=== PATIENT | female | born 1975 | race Hispanic/Latino ===

== ENCOUNTER 2017-11-10 07:46 | Outpatient (CLI) | payer OTHER ==
--- NOTE | 2017-11-10 09:36 | Ultrasound Report ---
The mammogram and left breast ultrasound: The patient presents with a history of a palpable finding in her left breast for approximately 2 months. A marker was placed over the area of concern and routine views as well as spot magnification compression images are obtained. On initial images the markers located in the approximate 10:00 location several centimeters posterior to the nipple. Posterior to the marker there is an asymmetric area of inhomogeneous and partially circumscribed tissue density containing several calcifications. In the location of the marker however there is no significant finding. The remainder the breast pattern is symmetric and unremarkable and that of intermediate fibroglandular tissue density. Compared to her prior exam in August 2015 the asymmetric tissue density on the left is new but the remainder of the breast pattern is essentially unchanged. Our chemistry quality control technician indicates that there is no abnormality in the palpable location at 10:00 nor elsewhere in the breast. CAD used. Impression: Suspicious left breast asymmetry. Recommendation: Consider stereotactic biopsy of left breast asymmetry. Our chemistry quality control technician has indicated the findings and recommendations to the patient. BI-RADS CATEGORY: 4 = Suspicious ACR BI-RADS MAMMOGRAPHIC CODES: 0 = Needs additional imaging evaluation; 1 = Negative; 2 = Benign; 3 = Probably benign; 4 = Suspicious; 5 = Malignant; 6 = Known biopsy-proven malignancy COMMENT: 1. Dense breast tissue, i.e., adenosis, fibrocystic changes, etc., may obscure an underlying neoplasm. 2. Approximately 10% of cancers are not detected with mammography. 3. A negative mammography report should not delay biopsy if a clinically suspicious mass is present.
== END 2017-11-10 07:47 | disposition home or self-care (01) ==
LOC: MAMMO 07:46
PROVIDERS: ATTEND Obstetrics & Gynecology Gynecology
DX: N63.20 Unspecified lump in the left breast, unspecified quadrant (principal); N64.89 Other specified disorders of breast
CPT/HCPCS: 77066

== ENCOUNTER 2017-11-25 13:26 | Outpatient (CLI) | payer OTHER ==
--- NOTE | 2017-11-25 15:05 | Mammography Report ---
STEREOTACTIC VACUUM ASSISTED BIOPSY WITH CLIP PLACEMENT LEFT BREAST: 11/25/17 13:26:00 CLINICAL: Left breast mass not seen by ultrasound. COMPARISON:11/10/17 mammogram and left breast ultrasound. FINDINGS: Consent for the procedure was obtained. The previously described mass was targeted with stereotactic guidance. The skin was prepped with Betadine and anesthetized with 1% lidocaine. 2% lidocaine with epinephrine was injected for deeper anesthesia. 8 gauge Mammotome biopsy was performed from a medial approach through a small dermatotomy. Prefire and post-fire images demonstrated satisfactory positioning of the probe. Samples were obtained around the clock face. A clip was placed at the biopsy site and the deployment was confirmed with a radiograph. The probe was removed and hemostasis was achieved with mild pressure. A sterile dressing was applied. The patient tolerated the procedure well and there were no apparent complications. Two view mammogram demonstrated concordant position of the biopsy clip and a specimen radiograph confirmed removal of calcifications and portions of a mass. IMPRESSION: Uncomplicated stereotactic biopsy with clip placement left breast.
--- NOTE | 2017-11-25 15:06 | Mammography Report ---
LEFT DIGITAL DIAGNOSTIC MAMMOGRAM: 11/25/17 13:26:00 CLINICAL: For clip placement immediately status post stereotactic biopsy. COMPARISON:11/10/15 FINDINGS: A biopsy clip is now identified within the previously described upper inner lobular shaped mass. At least one calcification has been removed. IMPRESSION: Concordant clip placement status post stereotactic biopsy. BI-RADS CATEGORY: 4--Suspicious Pathology pending.
== END 2017-11-25 13:27 | disposition home or self-care (01) ==
LOC: SPVWC 13:26
PROVIDERS: ATTEND Obstetrics & Gynecology Gynecology
DX: R92.8 Other abnormal and inconclusive findings on diagnostic imaging of breast (principal); N63.0 Unspecified lump in unspecified breast
CPT/HCPCS: 19081; 77065; 88305; 88342; 88361; A4648

== ENCOUNTER 2017-12-24 12:40 | Outpatient (CLI) | payer OTHER ==
--- NOTE | 2017-12-27 14:45 | Magnetic Resonance Report ---
BILATERAL BREAST MRI WITHOUT AND WITH CONTRAST: 12/24/17 12:40:00 CLINICAL: Newly diagnosed left breast cancer. Status post left stereotactic breast biopsy 11/25/17 with pathologic diagnosis of invasive carcinoma. COMPARISON:11/10/17 bilateral mammogram and left breast ultrasound. TECHNIQUE: Axial 1.0-mm T1 without, axial high resolution 2.0-mm T2 and axial 1.0-mm dynamic Vibrant high-resolution postcontrast T1 fat saturation sequences on a 1.5 Mi magnet. The examination was performed with an 8 channel dedicated Sentinelle breast coil. Post processing with CAD and subtraction was performed on an [employer] workstation. 20 cc of Multihance was injected for the contrast portion of the exam. Consent was obtained prior to the administration of the contrast. FINDINGS: Right: Mild background parenchymal enhancement. The known cancer is an irregular shaped enhancing mass at 10 o'clock 10.2 cm from the nipple measuring 1.7 x 1.7 x 1.6 cm. It contains a biopsy clip and correlates with a 2 cm mass on the recent mammogram. It demonstrates heterogeneous enhancement with mixed kinetics, 289% peak enhancement and 6% type III washout. Four additional suspicious masses are identified in the upper inner quadrant. Lesion 2 is located approximately 1.5 cm inferior to the known cancer and 10.0 cm from the nipple. It measures 7.6 x 5.2 x 3.4 mm. It demonstrates heterogeneous enhancement with mixed kinetics, 187% peak enhancement and 25% type III washout. Lesion 3 is located 2.2 cm anterior and less than 1 cm inferior inferior to the known cancer and 7.3 cm from the nipple. It measures 4.9 x 4.3 x 2.6 mm and demonstrates heterogeneous enhancement mixed kinetics, 148% peak enhancement in 53% type III washout. Lesion 4 and 5 are located anterior to the known cancer and measure 4.3 mm and 4.8 mm each with similar enhancement. Both are located approximately 7.7 cm from the nipple. No suspicious left axillary or left internal mammary lymph nodes. Several left axillary lymph nodes have benign morphology with central fat. The largest measures 2.9 x 0.8 cm. Left: Mild background parenchymal enhancement. No mass or suspicious enhancement of the right breast. No suspicious right axillary or right internal mammary lymph nodes. IMPRESSION: 1. Multifocal left breast cancer with a dominant 1.7 cm biopsy-proven cancer and four additional smaller masses in the same quadrant. The masses span a distance of approximately 4.5 cm. 2. Negative right breast. 3. No suspicious lymph nodes. RIGHT BI-RADS 1 -- Negative LEFT BI-RADS 6 -- Known Cancer
== END 2017-12-24 12:41 | disposition home or self-care (01) ==
LOC: SPVIMAG 12:40
PROVIDERS: ATTEND Surgery
DX: C50.212 Malignant neoplasm of upper-inner quadrant of left female breast (principal)
CPT/HCPCS: A9577; C8908; 77059

== ENCOUNTER 2018-01-06 10:52 | Outpatient (CLI) | payer OTHER ==
--- NOTE | 2018-01-07 11:16 | PET Report ---
PET/CT:01/06/18 10:52:00 CLINICAL: Newly diagnosed left breast cancer. RADIOPHARMACEUTICAL: 15.35mCi F18-FDG. COMPARISON: 12/24/17 MRI Breast TECHNIQUE- Following intravenous injection of F-18 FDG and an approximately 60 minute uptake period, CT and PET images from the mid skull to the upper thighs were acquired with the patient in the fasted state. No contrast was administered. The CT protocol used for this PET CT study is designed for attenuation correction and anatomic localization of PET abnormalities. This multiple launch rocket system crewmember CT is not desired to produce and cannot replace, osemc-fr-ayk-art diagnostic CT scans with specific imaging protocols for different body parts and indications. Plasma glucose at the time of this test: 85g/dl. The standardized uptake values (SUV) are normalized to patient body weight and indicate the highest activity concentration (SUV max) in a given disease site. FINDINGS: Brain--Physiologic FDG uptake in the visualized regions of the brain. Neck--Physiologic FDG uptake . Chest--Physiologic FDG uptake in mediastinal blood pool and myocardium. A 1.7 cm FDG avid left upper inner breast mass with the biopsy clip and SUV 4.7. Lungs--No abnormal uptake. No pulmonary nodule or mass. Pleura/pericardium--No abnormal uptake. Thoracic nodes--No abnormal uptake. Small bilateral axillary lymph nodes with no FDG uptake. The largest on the left has central fat and measures 1.8 cm. Hepatobiliary--No abnormal uptake. Liver background SUV mean, as a reference for comparing FDG studies, is 3.7 . No liver mass. Spleen--No abnormal uptake. Pancreas--No abnormal uptake. Adrenal Glands--No abnormal uptake. Kidneys/Ureters/Bladder--No abnormal uptake. Abdominopelvic Nodes--No abnormal uptake. Bowel/Peritoneum/Mesentery--No abnormal uptake. Pelvic organs--No abnormal uptake. Bones/Soft Tissues--No abnormal uptake. No suspicious bone lesion. IMPRESSION-A single 1.7 cm FDG avid left breast mass. No evidence of metastasis.
== END 2018-01-06 10:53 | disposition home or self-care (01) ==
LOC: PET 10:52
PROVIDERS: ATTEND Internal Medicine Hematology & Oncology
DX: C50.212 Malignant neoplasm of upper-inner quadrant of left female breast (principal)
CPT/HCPCS: 78815; A9552

== ENCOUNTER 2018-01-10 10:27 | Outpatient (CLI) | payer OTHER ==
--- NOTE | 2018-01-10 11:25 | Ultrasound Report ---
LEFT BREAST ULTRASOUND: 01/10/18 10:27:00 CLINICAL: Known left breast cancer in three additional suspicious lesions by MRI. MRI biopsy on the same day was unsuccessful because of limitations in positioning. Two additional suspicious lesions were identified on today's MRI but only one was accessible for MRI biopsy. The biopsy could not be performed because the lesion disappeared on the last scan after repositioning in attendance to include a second lesion. This examination is performed in hopes of identifying additional lesions for biopsy. COMPARISON: MRI breast 12/24/17 FINDINGS: Ultrasound(including all four quadrants and the retroareolar area) was performed and demonstrated an irregular solid hypoechoic mass at 10 o'clock 8 cm from the nipple. It corresponds to the known cancer and measures 1.7 x 1.2 x 1.1 cm. No other mass identified. IMPRESSION: Known left breast cancer and no additional suspicious lesion identified by ultrasound. Recommend a second attempt at MRI biopsy. BI-RADS 6--Known Cancer
== END 2018-01-10 10:28 | disposition home or self-care (01) ==
LOC: SPVIMAG 10:27
PROVIDERS: ATTEND Surgery
DX: C50.912 Malignant neoplasm of unspecified site of left female breast (principal)

== ENCOUNTER 2018-01-24 08:07 | Outpatient (CLI) | payer OTHER ==
--- NOTE | 2018-01-24 10:59 | Mammography Report ---
LEFT DIGITAL DIAGNOSTIC MAMMOGRAM: 01/24/18 08:07:00 CLINICAL: For clip placement immediately status post MRI guided needle breast biopsy at 2 sites. Known cancer in the same breast. COMPARISON:11/05/17 FINDINGS: 2 biopsy clips correlate with MRI guided biopsy of 2 sites. Sample 1 is approximately 3 cm anterior to the known cancer and sample 2 is approximately 3 cm from the known cancer and 4 cm from sample 1. IMPRESSION: Concordant clip placement status post MRI guided needle breast biopsy at 2 sites . BI-RADS CATEGORY: 6--Known Cancer Pathology pending.
--- NOTE | 2018-01-24 11:48 | Magnetic Resonance Report ---
MRI GUIDED VACUUM ASSISTED CORE BIOPSY TWO SITES LEFT BREAST: 01/24/18 CLINICAL: Known left breast cancer with additional suspicious lesions by recent MRI. MRI biopsy was initiated on 01/06/18 but the procedure was not performed for technical reasons. COMPARISON: 12/24/17 FINDINGS: Consent for the procedure was obtained. A Vibrant dynamic postcontrast series was performed on a 1.5 Mi magnet using an 8 channel Sentinelle dedicated breast coil. Normal 19 cc of Multihance was injected intravenously without incident via a left antecubital vein 22-gauge INT. Consent was obtained prior to administration of contrast. Two lesions were localized and targeted using [email or web address] Sentinelle biopsy software. Lesion 2 is far posterior and most of the lesion is outside the grid. The skin was anesthetized with 1% lidocaine and small dermatotomies were performed. 2% lidocaine was administered for deeper anesthesia. 9-G biopsy was performed with an [employer] vacuum assisted device. Imaging demonstrated satisfactory positioning of the probe at the two sites and satisfactory samples were obtained. Clips were placed at both sites after confirmation of adequate sampling. The probes were removed and hemostasis was achieved with pressure to the sites. Sterile dressings were applied. The patient tolerated the procedure well and there were no apparent complications. A two view mammogram demonstrated concordant placement of both clips. The patient left the department in good condition with instructions for wound care and follow-up. IMPRESSION: Uncomplicated MRI biopsy with clip placement two sites left breast.
== END 2018-01-24 08:08 | disposition home or self-care (01) ==
LOC: SPVIMAG 08:07
PROVIDERS: ATTEND Surgery
DX: C50.912 Malignant neoplasm of unspecified site of left female breast (principal); C50.212 Malignant neoplasm of upper-inner quadrant of left female breast; Z17.1 Estrogen receptor negative status [ER-]
CPT/HCPCS: 19085; 19086; 77065; 88305; 88341; 88342; 88361; A9577

== ENCOUNTER 2018-02-14 06:56 | Observation (INO) | payer OTHER ==
[2018-02-14] MEDS ORDERED: SUBLIMAZE IV NR (08:11)
--- NOTE | 2018-02-14 08:11 | Anesthesia Day of Surgery ---
Anesthesia Day of Surgery - Day of Surgery Patient Examined: Yes Patient H&P Reviewed: Yes Patient is NPO: Yes
--- NOTE | 2018-02-14 08:11 | Anesthesia Consultation ---
Anesthesia Consult and Med Hx Date of service: 02/14/18 - Airway Anesthetic Teeth Evaluation: Good ROM Head & Neck: Adequate Mental/Hyoid Distance: Adequate Mallampati Class: Class I Intubation Access Assessment: Good - Pulmonary Exam CTA: Yes - Cardiac Exam Cardiac Exam: RRR - Pre-Operative Health Status ASA Pre-Surgery Classification: ASA3 Proposed Anesthetic Plan: General Nerve Block: pecs - Central Nervous System Hx Psychiatric Problems: No - Hematic Hx Anemia: Yes - Other Systems Hx Alcohol Use: No Hx Substance Use: No Hx Cancer: Yes (breast cancer) Hx Obesity: Yes - Additional Comments Anesthesia Medical History Comments: Informed consentn obtained
[2018-02-14] MEDS ORDERED: DILAUDID IV PRN (08:12)
[2018-02-14] MEDS ORDERED: MARCAINE 0.25% INFILTRATI ONE ×2 (08:20→10:45)
[2018-02-14] MEDS ORDERED: GARAMYCIN ONE (08:20)
[2018-02-14] MEDS ORDERED: XYLOCAINE 1% 20 mL ONE (08:20)
[2018-02-14] MEDS ORDERED: ANCEF ONE (08:20)
[2018-02-14] MEDS ORDERED: MARCAINE 0.5% 0 ML INFILTRATI ONE (08:20)
[2018-02-14] MEDS ORDERED: NACL 0.9% 100 ML ONE (08:21)
[2018-02-14] MEDS ORDERED: BACITRACIN ONE (08:21)
[2018-02-14] MEDS ORDERED: CLONIDINE 1,000 MCG/10 ML VIAL EP ONE (08:23)
[2018-02-14] MEDS ORDERED: MARCAINE 0.5% 30 ML INFILTRATI ONE (08:30)
[2018-02-14] MEDS ORDERED: XYLOCAINE 1% 20 mL INFILTRATI NR (08:30)
[2018-02-14] MEDS ORDERED: NEURONTIN PO NR (09:00)
[2018-02-14] MEDS ORDERED: NEO SYNEPHRINE/NS Syringe(OR USE) IV ONE (09:00)
[2018-02-14] MEDS ORDERED: MARCAINE 0.5% INFILTRATI NR (09:00)
[2018-02-14] MEDS ORDERED: PEPCID IV NR (09:00)
[2018-02-14] MEDS ORDERED: VERSED IV NR (09:00)
[2018-02-14] MEDS ORDERED: DECADRON IV NR (09:00)
[2018-02-14] MEDS ORDERED: NACL 0.9% 1000 ML 1,000 ML IV SCH (09:00)
[2018-02-14] MEDS ORDERED: XYLOCAINE MPF 2% ONE (09:07)
[2018-02-14] MEDS ORDERED: SUBLIMAZE ONE (09:07)
[2018-02-14] MEDS ORDERED: DIPRIVAN 10 MG/ML IV ONE (09:08)
--- NOTE | 2018-02-14 10:03 | Short Stay Summary ---
Short Stay Documentation Date of service: 02/14/18 - History Principal diagnosis: Left breast cancer of the upper inner quadrant H&P: obtained from office - Allergies and Medications Current Medications: Allergies No Known Allergies Allergy (Verified 02/11/18 13:10) Home Medications Medication Instructions Recorded Confirmed Last Taken Type No Known Home Medications [No 02/11/18 02/11/18 Unknown History Reported Home Medications] Active Medications Bupivacaine HCl (Marcaine 0.5%) 30 ml INFILTRATI PREOP NR Stop: 02/14/18 12:00 Celecoxib (Celebrex) 200 mg PO PREOP NR Stop: 02/14/18 12:00 Clonidine HCl (Clonidine 1,000 Mcg/10 Ml Vial) 200 mcg EP DIRECT ONE Stop: 02/14/18 08:24 Dexamethasone (Decadron) 8 mg IV PREOP NR Stop: 02/14/18 12:00 Famotidine (Pepcid) 20 mg IV PREOP NR Stop: 02/14/18 12:00 Fentanyl (Sublimaze) 100 mcg IV ONCE NR Stop: 02/14/18 12:00 Gabapentin (Neurontin) 600 mg PO PREOP NR Stop: 02/14/18 12:00 Hydromorphone HCl (Dilaudid) 0.5 mg IV Q10MIN PRN PRN Reason: Pain , Severe (7-10) Stop: 02/14/18 12:00 Sodium Chloride (Nacl 0.9% 1000 Ml) 1,000 mls @ 100 mls/hr IV DIRECT SHALA Stop: 02/14/18 18:00 Lidocaine (Xylocaine 1% 20 Ml) 10 ml INFILTRATI PREOP NR Stop: 02/14/18 12:30 Midazolam HCl (Versed) 2 mg IV PREOP NR Stop: 02/14/18 23:59 - Brief post op/procedure progress note Date of procedure: 02/14/18 Pre-op diagnosis: Multicentric left breast cancer of the upper inner quadrant Post-op diagnosis: same Procedure: Left total mastectomy with SLNB followed by left ALND Anesthesia: GETA Findings: Left total mastectomy; x2 SLNs and 1 of 2 positive for malignancy and then proceeded with left ALND Surgeon: GERALD LESTER Estimated blood loss: minimal Pathology: list (left mastectomy, left L SLNS x2, left ALND) Specimen disposition: to lab Condition: stable - Disposition Condition at discharge: Good Disposition: DC/TX-02 SHRT-TRM GEN HOSP IP Short Stay Discharge Plan Activity: other (no heavy lifting) Diet: regular Wound: other (per plastic surgery) Follow up with: JAYLEN TERRY MD [Primary Care Provider] - 7 Days GERALD LESTER MD [Staff Physician] - 7 Days
--- NOTE | 2018-02-14 10:07 | Operative Report ---
Operative Report Operative Report: Date of Service: February 14, 2018 Preoperative diagnosis: Multicentric left breast cancer of the upper inner quadrant Postoperative diagnosis: Same Procedure: Left total mastectomy with sentinel lymph node biopsy followed by ALND Surgeon: Charissa Shay M.D. Asst.: Brianna Kim MD Anesthesia: Gen. Findings: Left breast clips x3 present within left total mastectomy. 2 sentinel lymph nodes identified and 1 node positive for malignancy on frozen section of pathology and proceeded with left axillary lymph node dissection Complications: None Drains: Axilla and breast Estimated blood loss: Minimal Disposition: PACU in good condition Indications for operative procedure: This is a 42-year-old lady with stage I multicentric left breast cancer of the upper inner quadrant. Recommendations were to proceed with a left total mastectomy given multicentric breast cancer and SLN staging. Patient wished to procced with immediate tissue music educator placement by plastic surgery as well. Procedure in detail: Anesthesia placed left pectoral muscle block prior to going to the operating room. The patient was taken to the operating room and was placed supine. Gen. anesthesia was administered. The left nipple was injected with radioisotope and 1 cc of methylene blue. The known left breast cancer at the 10:00 position 7-9 cm from the nipple. Left breast was prepped and draped in the normal sterile operative fashion. Timeout was performed. Typical mastectomy incision markings were made. Attention was taken towards the left breast. A gamma probe was inserted into the axilla to identify the sentinel lymph node location with no uptake noted. A skin incision was made with a 10 blade knife and dissection taken down to the subcutaneous tissues. First began raising of the superior flap to the level of the clavicle superiorly and posteriorly to the pectoralis muscle. Followed by raising of the medial flap to the level of the sternum and posteriorly to the pectoralis muscle. Followed by raising of the lateral flap to the level of the latissimus dorsi muscle and taken down posteriorly. The gamma probe was inserted into the axilla and 2 sentinel lymph nodes were identified with the gamma probe and all remaining counts were less than 10% of the highest SLN. Lymph node was sent to pathology with findings 1 of 2 sentinel lymph nodes positive for malignancy noted on frozen section. Then proceeded with raising of the inferior flap to the level of the inframammary fold taken posterior to the pectoralis muscle. The mastectomy/breast was removed from the pectoralis muscle without incident. The specimen was appropriately marked and sent to radiology with findings of 3 breast clips present and sent to pathology. Attention was then taken towards the left axilla. First began opening of the axillary fascia further. The lattismus dorsi muscle was identified and followed superiorly. Then proceeded with identification of the axillary vein followed by identification of the thoracodorsal bundle and long thoracic nerve. Axillary lymph nodes were then removed from the above boundaries with the aid of the bovie cautery and sweeping-like motion and then sent to pathology. Axillary lymph nodes from level I and II were removed. Axillary lymph nodes were also noted lateral to the thoradorsal bundle that were removed. Both nerves were identified and unharmed. Hemostasis was noted. Dr. Frank then proceeded with left tissue music educator placement.
[2018-02-14] MEDS ORDERED: METHYLENE BLUE ONE (10:14)
[2018-02-14] MEDS ORDERED: NACL ONE (10:15)
[2018-02-14] MEDS ORDERED: METHYLENE BLUE IRRIGATION ONE ×3 (10:15→13:40)
[2018-02-14] MEDS ORDERED: XYLOCAINE 1% 20 mL INFILTRATI ONE (10:45)
[2018-02-14] MEDS ORDERED: DECADRON ONE (11:59)
--- NOTE | 2018-02-14 12:21 | Mammography Report ---
Operative specimen: A single surgical specimen is submitted. There are 2 adjacent biopsy clips near one surface and a third biopsy clip near another surface. Centrally there is a circumscribed nodule.
[2018-02-14] MEDS ORDERED: GARAMYCIN IV ONE (13:40)
[2018-02-14] MEDS ORDERED: ANCEF IV ONE (13:40)
[2018-02-14] MEDS ORDERED: BACITRACIN IR ONE (13:40)
[2018-02-14] MEDS ORDERED: PERCOCET 5/325 PO PRN (14:13)
[2018-02-14] MEDS ORDERED: SODIUM CHLORIDE FLUSH SYRINGE 10 ML IV PRN (14:13)
[2018-02-14] MEDS ORDERED: BENADRYL PO PRN (14:13)
[2018-02-14] MEDS ORDERED: REGLAN PO PRN (14:13)
[2018-02-14] MEDS ORDERED: TYLENOL PO PRN (14:13)
[2018-02-14] MEDS ORDERED: ZOFRAN IV PRN (14:13)
[2018-02-14] MEDS ORDERED: ZOFRAN ONE (14:25)
[2018-02-14] MEDS ORDERED: ZEMURON IV ONE (14:42)
[2018-02-14] MEDS: DILAUDID IV PRN ×3 (14:52→15:21)
[2018-02-14] MEDS ORDERED: DILAUDID ONE ×2 (14:53→15:24)
--- NOTE | 2018-02-14 14:54 | Post Operative Note ---
Pre-op diagnosis: left breast cancer Post-op diagnosis: same Findings: left mastectomy defect Procedure: left breast reconstruction with tissue plant operations coordinator and mesh Anesthesia: GETA Surgeon: ABDIEL MANZANO Estimated blood loss: minimal Pathology: none Condition: stable Disposition: PACU
--- NOTE | 2018-02-14 15:40 | Post Anesthesia Evaluation ---
- Post Anesthesia Evaluation Patient Participated: Yes Airway Patent: Yes Stable Respiratory Function: Yes Nausea/Vomiting: No Temp > 96.8F: Yes Pain Manageable: Yes Adequeate Hydration: Yes Anesthesia Complications: No
[2018-02-14] MEDS: LACTATED RINGERS 1,000 ML IV SCH (17:30)
[2018-02-14] MEDS: MORPHINE IV PRN (19:42)
[2018-02-14] MEDS: COLACE PO SCH (22:00)
[2018-02-15] MEDS: LACTATED RINGERS 1,000 ML IV SCH (00:33)
[2018-02-15] MEDS: MORPHINE IV PRN (05:21)
[2018-02-15 08:43] VITALS: BP 130/87
[2018-02-15] MEDS: COLACE PO SCH (10:07)
--- NOTE | 2018-02-16 00:01 | Operative Report ---
PREOPERATIVE DIAGNOSIS: Left breast cancer. POSTOPERATIVE DIAGNOSIS: Left breast cancer. PROCEDURES: 1. Left immediate breast reconstruction with tissue consumer studies professor. CPT CODE 08529-P. 2. Left breast reconstruction utilizing implantation of biological mesh, FlexHD. CPT CODE 06867-F. 3. Application of negative pressure wound VAC device for wound healing, DANI. CPT CODE 22017-K. SURGEON: Tolu Cuevas M.D. BED RUBBER: None. ANESTHESIA: General. OPERATIVE INDICATIONS: This is a 42-year-old female who has a newly diagnosed left breast cancer. She is going to be undergoing left mastectomy. Dr. Shay and she saw me in the office for reconstructive options. After discussion of the different options, we elected to proceed with left breast tissue consumer studies professor reconstruction. Risks and benefits of surgery were discussed with the patient. She agreed. OPERATIVE DETAILS: After informed consent was obtained, the patient was brought to the operating room and placed supine on the operating table. Preoperative antibiotics and general anesthesia were administered. The patient was prepped and draped in usual sterile fashion. A timeout was called verifying the name of the patient, operation being performed, side and site of the operation. Dr. Shay began her portion of the operation performed in the mastectomy and lymph node dissection, which will be dictated separately. I came into the room at the completion of her portion of the procedure, assessed the defect, which was a left mastectomy defect and lymph node dissection, and began with reconstruction. Subpectoral pocket was created and a tissue consumer studies professor was prepared for implantation. We used a [place] [employer] high profile 500 mL tissue consumer studies professor with serial #[id number]. We removed all the air from the consumer studies professor, placed in the subpectoral pocket, secured it with suture tabs at the chest wall. I then took a piece of FlexHD medium perforated 11 x 20 cm with serial #[id number] and secured that to the inframammary and lateral breast borders with 2-0 Vicryl sutures. We then completely cover the implant by sewing the pectoralis major muscle to the FlexHD using 2-0 Vicryl running suture. Everything was irrigated with antibiotic irrigation. Hemostasis was achieved. We placed a 15-Korean Chester drain in the axilla, a 19-Korean Chester drain in the prepectoral space, and began with closure. 2-0 Vicryl interrupteds were used for the skin and then a running 2-0 Monocryl barbed suture in the deep dermal fashion. We then identified the port and inserted a butterfly needle and placed 250 mL of saline with methylene blue into the consumer studies professor. This did not appear to compromise the skin flaps at all. A DANI negative pressure wound VAC device was then applied to the incision for postoperative wound healing. The patient tolerated procedure well, was awakened from general anesthesia, transferred to PACU in stable condition. FINDINGS: Left mastectomy defect. COMPLICATIONS: None. ESTIMATED BLOOD LOSS: Less than 50 mL. JOB# [id number] Ray/BITA
== END 2018-02-15 11:20 | disposition home or self-care (01) ==
LOC: OR 06:56 → OB 14:13
PROVIDERS: ADMIT Surgery; ATTEND Surgery
DX: C50.212 Malignant neoplasm of upper-inner quadrant of left female breast (principal); E66.9 Obesity, unspecified; Z68.30 Body mass index [BMI] 30.0-30.9, adult
CPT/HCPCS: 15777; 19303; 19357; 38745; 64450; 76098; 78800; 81025; 88307; 88331; 88333; 96374; 96375; 96376; 97607; A9541; C1789; G0378; J0690; J0735; J1100; J1170; J1580; J2250; J2270; J2370; J2405; J2704; J3010; J7030; J7120; Q4128; Q9968

== ENCOUNTER 2018-03-15 08:15 | Day surgery (SDC) | payer OTHER ==
[~2018-03-15 08:15] MED LIST: HEPARIN IR ONE
[2018-03-15] MEDS ORDERED: PERCOCET 5/325 PO PRN (09:49)
[2018-03-15] MEDS ORDERED: TORADOL IV PRN (09:49)
[2018-03-15] MEDS ORDERED: DILAUDID IV PRN (09:49)
[2018-03-15] MEDS ORDERED: ZOFRAN IV PRN (09:49)
--- NOTE | 2018-03-15 09:50 | Anesthesia Day of Surgery ---
Anesthesia Day of Surgery - Day of Surgery Patient Examined: Yes Patient H&P Reviewed: Yes Patient is NPO: Yes
--- NOTE | 2018-03-15 09:50 | Anesthesia Consultation ---
Anesthesia Consult and Med Hx Date of service: 03/15/18 - Airway Anesthetic Teeth Evaluation: Good ROM Head & Neck: Adequate Mental/Hyoid Distance: Adequate Mallampati Class: Class II Intubation Access Assessment: Probably Good - Pulmonary Exam CTA: Yes - Cardiac Exam Cardiac Exam: RRR - Pre-Operative Health Status ASA Pre-Surgery Classification: ASA2 Proposed Anesthetic Plan: General - Pulmonary Hx Asthma: No COPD: No Hx Pneumonia: No - Cardiovascular System Hx Hypertension: No - Central Nervous System Hx Psychiatric Problems: No - Endocrine Hx End Stage Renal Disease: No - Hematic Hx Anemia: Yes - Other Systems Hx Alcohol Use: No Hx Substance Use: No Hx Cancer: Yes Hx Obesity: Yes
[2018-03-15] MEDS ORDERED: MARCAINE 0.25% INFILTRATI ONE ×3 (09:53→10:28)
[2018-03-15] MEDS ORDERED: XYLOCAINE 1% 20 mL ONE (09:53)
[2018-03-15] MEDS ORDERED: HEPARIN 10,000 UNITS/10 ML ONE (09:54)
[2018-03-15] MEDS ORDERED: NACL 0.9% 100 ML ONE (09:54)
[2018-03-15] MEDS ORDERED: ANCEF/STERILE WATER 2 GM/20 ML IV NR (10:00)
[2018-03-15] MEDS ORDERED: LACTATED RINGERS 1,000 ML IV SCH (10:00)
[2018-03-15] MEDS ORDERED: DIPRIVAN 10 MG/ML IV ONE (10:01)
[2018-03-15] MEDS ORDERED: XYLOCAINE MPF 2% ONE (10:01)
[2018-03-15] MEDS ORDERED: DECADRON ONE (10:20)
[2018-03-15] MEDS ORDERED: ZOFRAN ONE (10:20)
[2018-03-15] MEDS ORDERED: DILAUDID ONE (10:24)
[2018-03-15] MEDS ORDERED: XYLOCAINE 1% 20 mL INFILTRATI ONE ×2 (10:28)
[2018-03-15] MEDS ORDERED: NACL 0.9% IV ONE (10:30)
[2018-03-15] MEDS ORDERED: HEPARIN 10,000 UNITS/10 ML IR ONE (10:30)
[2018-03-15] MEDS ORDERED: HEPARIN IR ONE (11:00)
--- NOTE | 2018-03-15 11:27 | Short Stay Summary ---
Short Stay Documentation Date of service: 03/15/18 Narrative H&P: 42 yo F with left sided breast cancer presents for placement of port a cath. No complaints. - History Principal diagnosis: Left breast cancer H&P: obtained from office - Allergies and Medications Current Medications: Allergies No Known Allergies Allergy (Verified 03/10/18 13:22) Home Medications Medication Instructions Recorded Confirmed Last Taken Type No Known Home Medications [No 02/11/18 02/11/18 Unknown History Reported Home Medications] Active Medications Cefazolin Sodium (Ancef/Sterile Water 2 Gm/20 Ml) 2 gm IV PREOP NR Stop: 03/15/18 12:00 Hydromorphone HCl (Dilaudid) 0.25 mg IV Q10MIN PRN PRN Reason: Pain, Moderate (4-6) Stop: 03/15/18 15:00 Lactated Ringer's (Lactated Ringers) 1,000 mls @ 100 mls/hr IV DIRECT SHALA Ketorolac Tromethamine (Toradol) 30 mg IV ONCE PRN PRN Reason: Pain, Moderate (4-6) Stop: 03/15/18 15:00 Ondansetron HCl (Zofran) 4 mg IV ONCE PRN PRN Reason: Nausea And Vomiting Stop: 03/15/18 15:00 Oxycodone/Acetaminophen (Percocet 5/325) 1 tab PO ONCE PRN PRN Reason: Pain, Moderate (4-6) Stop: 03/15/18 15:00 - Brief post op/procedure progress note Date of procedure: 03/15/18 Pre-op diagnosis: left breast cancer Post-op diagnosis: same Procedure: placement of R IJ port a cath with ultrasound guidance Anesthesia: GETA, local Findings: Good blood return from port and it flushes easily. Good placement of port on post op CXR without PTX. Surgeon: KARYN MOELLER Estimated blood loss: minimal Pathology: none Condition: stable - Hospital course Hospital course: Pt was recovered in the PACU and discharged to home when criteria was met. - Disposition Condition at discharge: Good Disposition: DC-01 TO HOME OR SELFCARE Short Stay Discharge Plan Activity: no restrictions Diet: regular Wound: open to air, other (May shower with soap and water, pat incisions dry, do not scrub. Do not submerge incisions in water until healed.) Additional Instructions: Call surgeon's office if you have temp>100.4, drainage or redness around incisions. A small amount of bruising around incisions is normal and you can use ice to help with pain and bruising. Follow up with your oncologist to start chemotherapy as scheduled. If you do not have a follow up with Dr. Shay in the next two weeks, please follow up with Dr. Moeller in 2 weeks. Call [phone] to make an appointment. Follow up with: JAYLEN TERRY MD [Primary Care Provider] - 7 Days
--- NOTE | 2018-03-15 11:39 | Fluoroscopy Report ---
AP CHEST: HISTORY: Czyzsa-g-Aryq insertion A right Dndvnb-l-Ocru has been inserted which terminates in the right atrium. No pneumothorax. The lungs are clear. Heart size is borderline. Left breast tissue life science taxonomist is noted. IMPRESSION: Right Xkdtpo-p-Flsv placement as described. No pneumothorax.
[2018-03-15 13:56] VITALS: BP 145/90
--- NOTE | 2018-03-15 14:47 | Operative Report ---
Operative Report Operative Report: Date of procedure: 03/15/18 Pre-op diagnosis: left breast cancer Post-op diagnosis: same Procedure: placement of R IJ port a cath with ultrasound guidance Anesthesia: GETA, local Findings: Good blood return from port and it flushes easily. Good placement of port on post op CXR without PTX. Surgeon: KARYN MOELLER Estimated blood loss: minimal Pathology: none Condition: stable HPI and indication: 42 yo F with left breast ca presents for placement of port a cath. She is a candidate for chemotherapy and is starting chemo on 03/17/18. All risks, benefits, alternatives to surgery discussed with the patient and consent verified on chart. Procedure in detail: The patient was identified in the preoperative area and taken to the OR and placed on the OR table in supine position. After anesthesia was induced, both arms were tucked with appropriate padding, and the upper chest and neck were prepped and draped in the usual sterile fashion. A time out was performed. Using ultrasound guidance, the right subclavian vein was seen and compressible. Local anesthetic was infiltrated into the skin at the intended puncture site. The patient was placed in trendelenberg position and two attempts were made to access the subclavian vein, however it was too deep and could not be accessed safely. Therefore, the right internal jugular vein was identified on ultrasound and accessed on first attempt. There was return of dark red, nonpulsatile blood. A guidewire was passed without difficulty and positioning verified using fluoroscopy. The needle was withdrawn. Local anesthetic was infiltrated into the skin and subcutaneous tissue at the port insertion site. A 4 cm horizontal incision was made in the skin below the clavicle using a 15 blade. Dissection was carried down through the skin and subcutaneous tissue using electrocautery with hemostasis achieved along the way. A pocket was then created for the port using bovie electrocautery and blunt dissection and hemostasis carefully achieved. All parts of the port were flushed with heparinized saline. The catheter was then tunnelled from the pocket to the wire using the tunnel drier operator. A breakaway catheter/dilator sheath was then introduced over the wire using seldinger technique under fluoroscopic guidance. The wire and dilator was removed and catheter inserted. The breakaway sheath was removed and the catheter sat flush under the skin. The catheter was pulled back slowly under fluoro until the tip was seen in the right atrium. The catheter was then cut and the port attached in the standard fashion. The pocket was irrigated and hemostasis once again ensured. The port was sutured to the prepectoral fascia using 2-0 vicryl in two locations. The port was tested with heparized saline and there was good blood return and the port flushed easily. The port was instilled with 3000 units of heparin. The deep dermal layer was closed using interrupted 3-0 vicryl sutures. The skin incisions were closed using 4-0 monocryl subcuticular stitches and skin glue. At the end of the case, all sponge, instrument, sharp counts were correct x2. The patient was awoken from anesthesia, extubated, and taken to PACU in stable condition. The post operative CXR showed no PTX and the port was in good position.
== END 2018-03-15 12:44 | disposition home or self-care (01) ==
LOC: OR 08:15
PROVIDERS: ATTEND Surgery
DX: C50.212 Malignant neoplasm of upper-inner quadrant of left female breast (principal); Z90.12 Acquired absence of left breast and nipple
CPT/HCPCS: 36561; 76937; 81025; C1788; J0690; J1100; J1170; J1644; J2405; J2704; J7120; 77001

== ENCOUNTER 2019-12-27 09:17 | Outpatient (CLI) | payer OTHER ==
--- NOTE | 2019-12-27 13:13 | Ultrasound Report ---
COMPLETE RIGHT BREAST ULTRASOUND HISTORY: History of left breast cancer status post left mastectomy and more recently status post righ t reduction mammoplasty. This study is being done to evaluate new density in the lower right breast o n recent mammogram. COMPARISON: 12/14/2019 mammogram FINDINGS: Complete sonographic evaluation including imaging of the four quadrants and subareolar aspe ct of the right breast was performed. An irregular heterogeneous hypoechoic mass at 6:00 8 cm from th e nipple measures approximately 3 x 2 x 3.5 cm and correlates with the mammographic density. IMPRESSION: Probable benign postsurgical scar. Recommend 6 month follow-up right mammogram and right breast ultrasound. BIRADS 3: Probably benign. Signer Name: Jon Ron MD Signed: 12/27/2019 1:08 PM Workstation Name: [id number]
== END 2019-12-27 09:18 | disposition home or self-care (01) ==
LOC: SPVWC 09:17
PROVIDERS: ATTEND Surgery
DX: N63.42 Unspecified lump in left breast, subareolar (principal)

== ENCOUNTER 2020-07-16 13:12 | Outpatient (CLI) | payer OTHER ==
--- NOTE | 2020-07-16 15:22 | Ultrasound Report ---
EXAMINATION: Right Limited Breast Ultrasound, 07/16/2020 INDICATION: ABNORMAL MAMMOGRAM. Patient presents for six-month follow-up of probably benign post reduction change in the right breast. COMPARISON: Right diagnostic mammogram 07/04/2020 and right breast ultrasound 12/27/2019 FINDINGS: Targeted ultrasound evaluation was performed of the area of interest. Targeted ultrasound of the 6:00 right breast located 8 cm from the nipple in the region of prior scar demonstrates persis tent hypoechoic tissue with a small internal cystic component. Overall, this appears slightly decreas ed compared with prior right breast ultrasound from December 2019. Additionally, the mammographic cor relate as seen on recent right breast diagnostic mammogram was also less prominent compared with prio r mammogram. Therefore, this is considered benign. IMPRESSION: 1. Hypoechoic tissue underlying the reduction scar in the inferior right breast is slightly less prom inent compared with prior ultrasound and compatible with benign postsurgical change. Follow up recommendation: Back to schedule. BI-RADS Category 2: Benign. Signer Name: Izabel Barcenas MD Signed: 07/16/2020 3:17 PM Workstation Name: [id number]
== END 2020-07-16 13:13 | disposition home or self-care (01) ==
LOC: SPVWC 13:12
PROVIDERS: ATTEND Surgery
DX: L90.5 Scar conditions and fibrosis of skin (principal); R92.8 Other abnormal and inconclusive findings on diagnostic imaging of breast; Z85.3 Personal history of malignant neoplasm of breast

== ENCOUNTER 2020-07-30 11:20 | Outpatient (CLI) | payer OTHER ==
--- NOTE | 2020-07-31 08:21 | Magnetic Resonance Report ---
Bilateral breast MR without and with contrast. History: Abnormal mammogram, personal history of breast cancer, status post left mastectomy and right breast reduction surgery. Comparison: 07/16/2020, 07/04/2020, 12/27/2019, 12/14/2019. Technique: Multiplanar multisequence MR images of the breast were obtained before and after the intra venous administration of 16 mL of MultiHance contrast agent. Post processing analysis and review was performed on a separate computer workstation. Findings: The right breast demonstrates heterogenously dense breast composition. There is mild background paren chymal enhancement. RIGHT BREAST: Located within the right inferior breast at the 6:00 position at middle depth is an are a of distortion with central fact component and vague surrounding minimal low level enhancement. No d iscrete enhancing mass. The patient has underwent right breast reduction surgery in September 2019 and this low level enhancement can be seen postsurgically up to 18 months. The patient has no known hist ory of right breast malignancy. The overall findings are most consistent with benign-appearing postsu rgical change/fat necrosis which would be supported by the comparison mammographic and sonographic ev aluations. LEFT BREAST: Patient is status post left breast mastectomy with implant reconstruction. The implant a ppears intact. No abnormal enhancement within the reconstructed left breast. No abnormal axillary or internal mammary lymph nodes. Impression: No evidence of malignancy. Benign-appearing fat necrosis/scarring in the right inferior breast. Patie nt is status post left breast mastectomy with implant reconstruction. BIRADS 2: Benign A normal MRI does not exclude the presence of some forms of breast malignancy as literature reports s uggest that some forms of ductal carcinoma in situ or lobular carcinoma, particularly, may not be det ected on MRI. The sensitivity and specificity of MRI for cancers under 5 mm may be reduced. MRI does not replace the recommendation for annual conventional mammographic evaluation and should be used as an adjunct to mammography and physical examination as necessary. Signer Name: Tommy Justin MD Signed: 07/31/2020 8:16 AM Workstation Name: [id number]
== END 2020-07-30 11:21 | disposition home or self-care (01) ==
LOC: SPVIMAG 11:20
PROVIDERS: ATTEND Surgery
DX: R92.8 Other abnormal and inconclusive findings on diagnostic imaging of breast (principal); Z85.3 Personal history of malignant neoplasm of breast; Z90.12 Acquired absence of left breast and nipple
CPT/HCPCS: A9577; C8908; 77049

== ENCOUNTER 2021-07-28 08:29 | Outpatient (CLI) | payer OTHER ==
--- NOTE | 2021-07-28 17:04 | Mammography Report ---
DIGITAL SCREENING MAMMOGRAM WITH TOMOSYNTHESIS WITH CAD, 07/28/2021 CLINICAL INFORMATION / INDICATION: Routine Screening Mammography. History of left mastectomy. TECHNIQUE: Digital right 2D and 3D mammography with tomosynthesis was obtained in the craniocaudal a nd mediolateral oblique projections. Computer-Aided Detection (CAD) analysis was used for interpreta tion of this study. COMPARISON: Breast MRI dated 07/30/2020. Diagnostic right mammogram dated 07/04/2020. FINDINGS: Breast Density: There are scattered areas of fibroglandular density. No dominant mass, suspicious calcifications, or architectural distortion in the right breast. Previou sly described postoperative changes along the 6:00 position has evolved and are less dense. IMPRESSION: No mammographic evidence of malignancy. Follow up recommendation: Routine yearly BI-RADS Category 2: Benign. A "normal" or negative report should not discourage follow up or biopsy of a clinically significant f inding. A written summary of these findings will be mailed to the patient. The patient will be entered into a mammography reporting system which will generate a reminder letter for the patient's next appointmen t at the appropriate interval. The [employer] recommends yearly mammograms starting at age 40 and continuing as l guillermina as a woman is in good health. Breast MRI is recommended for women with an approximate 20-25% or greater lifetime risk of breast cancer, including women with a strong family history of breast or ova isela cancer or who have been treated for Hodgkin's disease. Signer Name: Luis Ochoa MD Signed: 07/28/2021 5:00 PM Workstation Name: [id number]
== END 2021-07-28 08:30 | disposition home or self-care (01) ==
LOC: SPVWC 08:29
PROVIDERS: ATTEND Surgery
DX: Z12.31 Encounter for screening mammogram for malignant neoplasm of breast (principal); N64.89 Other specified disorders of breast
CPT/HCPCS: 77063